=== PATIENT | male | born 1980 | race Two or more races ===

== ENCOUNTER → 2016-06-09 | Emergency (ER) | payer BC ==
[~2016-06-09] VITALS: Ht 188 cm; Wt 61.2 kg
[~2016-06-09] MED LIST: IBUPROFEN600 MG ORAL
[2016-06-09 15:45] VITALS: BP 142/90
--- NOTE | 2016-06-09 22:57 | Emergency Room Report ---
History of Present Illness General Chief Complaint: Lower Extremity Injury Source: Patient Present Illness HPI The pt is a 36 yo M presenting for l ankle pain which began one day prior after descending stairs and feeling feeling the ankle fold under him.The pt denies falling and denies prior injury to the ankle. The pt states the pain is a 7/10 dull ache and does not radiate from the ankle. The pain is worse with foot movement and walking. Pt denies numbness or tingling. Pt denies N, V, F, chills, rash, calf pain, CP, SOB Allergies: Coded Allergies: No Known Allergies (Unverified , 06/09/16) Patient History Past Medical History: see triage record Pertinent Family History: none Reviewed Nursing Documentation: PMH: Agreed, PSxH: Agreed Nursing Documentation-PMH Past Medical History: No Stated History Review of Systems All Other Systems: negative except mentioned in HPI Physical Exam Vital Signs Date Time Temp Pulse Resp B/P Pulse Ox O2 Delivery O2 Flow Rate FiO2 06/09/16 14:55 99.3 106 16 116/85 100 Room Air Sp02 EP Interpretation: reviewed, normal General Appearance: no apparent distress, alert, GCS 15, non-toxic Head: normocephalic, atraumatic Eyes: bilateral eye PERRL, bilateral eye normal inspection Genitourinary: normal inspection, no CVA tenderness Musculoskeletal: normal range of motion, no calf tenderness, swelling - 1+ edema to lateral ankle, tender - TTP over the L lateral ankle Neurologic: alert, oriented x3, responsive, motor strength/tone normal, sensory intact, normal gait, speech normal Psychiatric: judgement/insight normal, memory normal, mood/affect normal, no suicidal/homicidal ideation Reflexes: 2+ ankle (R), 2+ ankle (L) Skin: normal color, no rash, warm/dry, well hydrated Lymphatic: no adenopathy Procedures Splinting Splinting : Consent: Verbal Location: L ankle Medical Decision Making PA Attestation Dr. Murrell is my supervising physician. Patient management was discussed with my supervising physician Diagnostic Impression: Primary Impression: Ankle sprain ER Course The pt is a 36 yo M presenting for l ankle pain which began one day prior after descending stairs and feeling feeling the ankle fold under him. Ddx considered include but not limited to sprain/strain, fracture, contusion PE: vitals WNL. NAD Ankle: Full AROM intact. SILT. There is 1+ edema to lateral ankle. TTP over this region. SKin intact. No ecchymosis. Xray is consistent with ankle sprain. Ankle placed in MIKE wrap and crutches. Pt given motrin. for pain. Pt will be DC'ed with RICE instruction and motrin. ER precautions given. Other X-Ray Diagnostic Results Other X-Ray Diagnostic Results : Date: Jun 09, 2016 EP Interpretation: Yes Findings: no fractures, other - See below Number of Views: 3 Other Impression Anterolateral soft tissues are significantly swollen. No fracture, dislocation, joint space widening , medial soft tissue swelling, or other acute changes are identified. PA Scribe Text I'm acting as scribe for my supervising physician. My supervising physician's interpretation of the ankle xrays are there are no fractures. There is soft tissue swelling and joint space widening consistent with sprain. Last Vital Signs Date Time Temp Pulse Resp B/P Pulse Ox O2 Delivery O2 Flow Rate FiO2 06/09/16 15:45 94 12 142/90 100 Room Air 06/09/16 14:55 99.3 Status: improved Disposition: HOME, SELF-CARE Condition: Improved Scripts Ibuprofen* (MOTRIN*) 600 Mg Tablet 600 MG ORAL Q8H Y for For Pain, #30 TAB 0 Refills Prov: SLOANE MCGUIRE 06/09/16 Referrals: JEAN HUERTA (PCP) Patient Instructions: Ankle Sprain Additional Instructions: I discussed my findings with the patient. All questions and concerns have been answered. Treatment and medication compliance have been addressed. I advised the patient that they need to follow up with PMD in 3-5 days. Return to ED if pain remains or worsens, numbness or tingling occurs, new rash is noticed, fever is noticed, or if needed for any reason. Patient verbalized understanding of discharge instructions. SLOANE MCGUIRE Jun 09, 2016 22:57
--- NOTE | 2016-06-10 15:57 | Diagnostic Imaging Report ---
Indications: Right ankle injury 2 days ago, pain and swelling Technique: 3 views right ankle. Findings: Comparison: None Anterolateral soft tissues are significantly swollen. No fracture, dislocation, joint space widening , medial soft tissue swelling, or other acute changes are identified. IMPRESSION: Consider ATFL sprain No other evidence of acute injury to the right ankle
== END | disposition home or self-care (01) ==
LOC: EMR 15:52
DX: S93.402A Sprain of unspecified ligament of left ankle, initial encounter (principal); W10.9XXA Fall (on) (from) unspecified stairs and steps, initial encounter; Y92.9 Unspecified place or not applicable
CPT/HCPCS: 99283